=== PATIENT | male | born 1955 | race Caucasian/White ===

== ENCOUNTER 2018-09-10 12:51 | Emergency (ER) | payer OTHER ==
[~2018-09-10] VITALS: Ht 180.3 cm; Wt 81.6 kg
[2018-09-10] MEDS ORDERED: DEPAKOTE ER250 MG PO (13:07)
[2018-09-10] MEDS ORDERED: RISPERDAL2 MG PO (13:07)
[2018-09-10] MEDS ORDERED: VASOTEC10 MG PO (13:07)
[2018-09-10] MEDS ORDERED: KETO10TA2 PO (14:55)
== END 2018-09-10 17:50 | disposition home or self-care (01) ==
LOC: ER 12:51
DX: S52.592A Other fractures of lower end of left radius, initial encounter for closed fracture (principal); W01.0XXA Fall on same level from slipping, tripping and stumbling without subsequent striking against object, initial encounter; Y93.89 Activity, other specified; Y92.098 Other place in other non-institutional residence as the place of occurrence of the external cause; Y99.8 Other external cause status

== ENCOUNTER 2018-09-17 06:32 | Day surgery (SDC) | payer OTHER ==
[~2018-09-17 06:32] MED LIST: DEPAKOTE ER250 MG PO; KETO10TA2 PO; RISPERDAL2 MG PO; VASOTEC10 MG PO
[2018-09-17] MEDS ORDERED: PERCOCET 5-3251 EACH PO (14:04)
[2018-09-17] MEDS ORDERED: ALEVE220 M1 PO (14:04)
[2018-09-17] MEDS ORDERED: DUI500 PO (14:04)
== END 2018-09-17 16:10 | disposition home or self-care (01) ==
LOC: CIR.AMB 06:32
DX: S52.532A Colles' fracture of left radius, initial encounter for closed fracture (principal)
CPT/HCPCS: 20902; 25609; C1776